=== PATIENT | female | born 1965 | race Caucasian/White ===

== ENCOUNTER 2018-08-05 20:13 | Emergency (ER) | payer BC, OTHER ==
[~2018-08-05] VITALS: Ht 162.6 cm; Wt 72.6 kg
--- NOTE | 2018-08-05 20:15 | NUR ---
Dr. Mabry at bedside to evaluate patient.
[2018-08-05] MEDS ORDERED: COGENTIN (20:20)
[2018-08-05] MEDS ORDERED: CYCL5TAB PO ×2 (20:20→23:48)
[2018-08-05] MEDS ORDERED: CLON2TAB11 PO (20:20)
[2018-08-05] MEDS ORDERED: BENZ2TAB7 PO (20:20)
[2018-08-05 20:36] LABS: BASOPHILS # (AUTO) 0.1 K/uL (0.0-8.0); BASOPHILS % (AUTO) 0.7 % (0.0-2.0); EOSINOPHILS # (AUTO) 0.2 K/uL (0.0-0.7); EOSINOPHILS % (AUTO) 1.8 % (0.0-7.0); HEMATOCRIT 40.4 % (31.2-41.9); HEMOGLOBIN 13.6 g/dL (10.9-14.3); LYMPHOCYTES # (AUTO) 4.3 K/uL (20.0-40.0); LYMPHOCYTES % (AUTO) 48.7 % (20.5-51.5); MEAN CORPUSCULAR HEMOGLOBIN 30.8 uug (24.7-32.8); MEAN CORPUSCULAR HGB CONC 34 g/dL (32.3-35.6); MEAN CORPUSCULAR VOLUME 91.4 fL (75.5-95.3); MONOCYTES # (AUTO) 0.5 K/uL (2.0-10.0); MONOCYTES % (AUTO) 5.5 % (0.0-11.0); NEUTROPHILS # (AUTO) 3.8 K/uL (1.8-8.9); NEUTROPHILS % (AUTO) 43.3 % (38.5-71.5); PLATELET COUNT (AUTO) 238 K/uL (179-408); RED BLOOD CELL COUNT(AUTO) 4.42 MIL/uL (3.63-4.92); WHITE BLOOD COUNT (AUTO) 8.8 K/uL (3.8-11.8)
[2018-08-05 20:44] LABS: CARBON DIOXIDE 27 mmol/L (21-32); CHLORIDE 106 mmol/L (98-107); GLUCOSE 112 mg/dL (74-106); POTASSIUM 3.7 mmol/L (3.5-5.1); UREA NITROGEN, BLOOD 23 mg/dL (7-18)
[2018-08-05 20:50] LABS: ALANINE AMINOTRANSFERASE 22 U/L (14-59); ALKALINE PHOSPHATASE 61 U/L (50-136); ASPARTATE AMINOTRANSFERASE 9 U/L (15-37); BILIRUBIN,DIRECT 0.1 mg/dL (0.0-0.2); BILIRUBIN,TOTAL 0.2 mg/dL (0.2-1.0); TOTAL PROTEIN, SERUM 6.7 g/dL (6.4-8.2)
[2018-08-05 20:52] LABS: ACETAMINOPHEN < 2.0 ug/mL (10-30); ETHANOL < 3 MG/DL (0-0)
[2018-08-05 20:58] LABS: THYROID STIMULATING HORMONE 6.663 mIU/mL (0.358-3.740)
[2018-08-05 21:00] LABS: *BILIRUBIN,URIN NEGATIVE (NEGATIVE); *BLOOD, URINE NEGATIVE (NEGATIVE); *CLARITY,URINE CLEAR (CLEAR); *COLOR,URINE YELLOW (YELLOW); *KETONES,URINE NEGATIVE (NEGATIVE); *UROBILINOGEN,URINE 0.2 E.U./dl (NORMAL); LEUKOCYTE ESTERASE ,URINE NEGATIVE (NEGATIVE); NITRITE, URINE NEGATIVE (NEGATIVE); PH,URINE 6.5 (5.0-8.0); UGLUCOSE NEGATIVE (NEGATIVE)
[2018-08-05 21:05] LABS: SQUAMOUS EPITHELIAL CELL,UR FEW /HPF (NONE SEEN); WBC,URINE 0-3 /HPF (0-3)
[2018-08-05 21:06] LABS: MUCUS,URINE FEW /LPF (0-FEW); URINE AMORPHOUS PHOSPHATES FEW /HPF
[2018-08-05 21:12] LABS: *AMPHETAMINE, URINE POSITIVE (NEGATIVE); *BARBITURATE, URINE NEGATIVE (NEGATIVE); *CANNABINOID, URINE NEGATIVE (NEGATIVE); *COCCAINE, URINE NEGATIVE (NEGATIVE); *OPIATE, URINE NEGATIVE (NEGATIVE); *PHENCYCLIDINE SCREEN,URINE NEGATIVE (NEGATIVE)
--- NOTE | 2018-08-05 22:07 | NUR ---
Paged Rajesh Munson LCSW, from PET Team. ETA 1 hour.
--- NOTE | 2018-08-05 22:55 | NUR ---
Art Capilla from PET team at bedside to evaluate patient.
[2018-08-05] MEDS ORDERED: ARIP10TA9 PO (23:48)
[2018-08-05] MEDS ORDERED: HALO10TA13 PO (23:48)
[2018-08-05] MEDS ORDERED: LEVO75TA7 PO (23:48)
[2018-08-05] MEDS ORDERED: TOPI200T PO (23:48)
[2018-08-05] MEDS ORDERED: ESCI10TA55 PO (23:48)
[2018-08-05] MEDS ORDERED: DIPH50CA38 PO (23:48)
[2018-08-05] MEDS ORDERED: BUPR-51 PO (23:48)
[2018-08-06] MEDS ORDERED: OLANZAPINE 10 MG VIAL IM ONE ×2 (00:15→00:25)
--- NOTE | 2018-08-06 00:48 | NUR ---
Pt is sleeping in bed comfortably. No acute distress noted.
--- NOTE | 2018-08-06 03:21 | NUR ---
Pt walks in steady gait to restroom. NAD noted.
--- NOTE | 2018-08-06 05:08 | NUR ---
Dr. Mabry at bedside to re-assess patient. Pt is awake, however incoherent, bizarre behavior.
[2018-08-06] MEDS ORDERED: AMLODIPINE 5 MG TABLET PO ONE (07:30)
[2018-08-06] MEDS ORDERED: AMLODIPINE 5 MG TABLET ONE (07:31)
--- NOTE | 2018-08-06 07:35 | NUR ---
pt is resting in bed comfortably. no s/s of distress at this time. continue to monitor the pt.
--- NOTE | 2018-08-06 09:46 | NUR ---
PT WAS EVALUATED BY [employer]ISIS DEVULCAN[employer]ER LOADER MICHAELA. PT IS GOING TO BE D/C'd TO HOME. PT'S MOTHER IS GOING TO BAG SEALER THE PT AT 1030.
--- NOTE | 2018-08-06 10:40 | NUR ---
PT WAS D/C'd TO HOME WITH HER PARENTS. NO S/S OF DISTRESS AT THIS TIME. D/C INSTRUCTIONS WERE GIVEN TO THE PT AND TO HER PARENTS.
[2018-08-06 10:42] VITALS: BP 143/74
== END 2018-08-06 10:43 | disposition home or self-care (01) ==
LOC: ER 20:16
DX: F29 Unspecified psychosis not due to a substance or known physiological condition (principal); F31.9 Bipolar disorder, unspecified; Z79.899 Other long term (current) drug therapy
CPT/HCPCS: 36415; 71045; 80048; 80076; 80307; 81001; 82962; 84443; 85025; 93005; 96372; 99284; G0480 ×2; G0481; A4663; C1758; J2358